=== PATIENT | female | born 1985 | race Caucasian/White ===

== ENCOUNTER 2020-05-31 02:38 | Outpatient (CLI) | payer BC, SELFPAY ==
[2020-05-31 12:22] LABS: Abs Immature Grans 0.03 k/cumm (0.0-0.09); Absolute Basophil Count 0.01 k/cumm (0.0-0.2); Absolute Eosinophil Count 0.07 k/cumm (0.0-0.7); Absolute Lymphocyte Count 2.35 k/cumm (1.2-3.4); Absolute Monocyte Count 0.74 k/cumm (0.11-0.7); Absolute Neutrophil Count 6.31 k/cumm (1.2-6.7); Basophils % 0.1; Eosinophils % 0.7; HCT 39.6 % (36.0-46.0); HGB 13.2 g/dL (12.0-15.5); Immature Grans % 0.3 %; Lymphocytes % 24.7; Mean Corp. HGB Concentration 33.3 g/dL (32.0-36.0); Mean Corpuscular Hemoglobin 29.7 pg (27.0-33.0); Mean Platelet Volume 11.6 fL (8.0-11.0); Monocytes % 7.8; Neutrophils % 66.4; Platelet Count 248 x1000/uL (130-400); RBC 4.45 m/cumm (4.00-5.20); RBC Distribution Width 13.9 % (11.7-14.6); White Blood Cell Count 9.51 k/cumm (4.4-10.8)
[2020-06-01 10:41] LABS: Varicella IgG Antibody Positive (See Note)
[2020-06-01 10:42] LABS: Rubella IgG Ab (UVM) Positive (See Note)
[2020-06-01 11:13] LABS: Hepatitis B Surface Ag Negative (Negative)
[2020-06-01 11:53] LABS: Hepatitis C Ab w Rflx HCV PCR Negative (Negative)
[2020-06-01 12:02] LABS: HIV-1/2 Ag & Ab Screen Negative (Negative)
[2020-06-02 09:59] LABS: Syphilis Total Ab w/Reflex Nonreactive (Nonreactive)
== END 2020-05-31 02:58 ==
PROVIDERS: PCP Emergency Medicine; Visit Provider Advanced Practice Midwife
DX: Z34.91 Encounter for supervision of normal pregnancy, unspecified, first trimester (principal); Z11.4 Encounter for screening for human immunodeficiency virus [HIV]; Z11.59 Encounter for screening for other viral diseases; Z01.84 Encounter for antibody response examination
CPT/HCPCS: 36415; 86787; 86803; 86850; 86900; 86901; 87340; 87389; 85025; 86762; 86780

== ENCOUNTER 2020-05-31 22:55 | Outpatient (REF) | payer BC, SELFPAY ==
[2020-05-31 14:46] LABS: *AMPHETAMINES SCREEN URINE Negative (Negative); *BARBITURATES SCREEN URINE Negative (Negative); *BENZODIAZEPINES SCREEN URINE Negative (Negative); Cannabinoids THC Negative (Negative); Cocaine Screen,Urine Negative (Negative); METHADONE URINE SCREEN Negative (Negative); OPIATES URINE SCREEN Negative (Negative)
[2020-05-31 14:50] LABS: Tricyclic Antidepressants Negative (Negative)
[2020-06-02 14:01] LABS: Chlamydia Result Negative (Negative); GC Result Negative (Negative)
[2020-06-07 16:35] LABS: Buprenorphine Negative; Norbuprenorphine Negative
== END 2020-05-31 23:15 ==
LOC: LBN 22:55
PROVIDERS: PCP Emergency Medicine; Visit Provider Advanced Practice Midwife
DX: Z34.91 Encounter for supervision of normal pregnancy, unspecified, first trimester
CPT/HCPCS: 80307; 87491; 87591; 87086

== ENCOUNTER 2020-07-04 15:06 | Outpatient (REF) | payer BC, SELFPAY | END 2020-07-04 15:26 | LOC: LBN 15:06 | PROVIDERS: PCP Emergency Medicine; Visit Provider Advanced Practice Midwife | DX: O26.899 Other specified pregnancy related conditions, unspecified trimester (principal); R30.0 Dysuria | CPT/HCPCS: 87077; 87086 ==

== ENCOUNTER 2020-07-26 00:28 | Outpatient (CLI) | payer BC, SELFPAY ==
--- NOTE | 2020-07-26 07:15 | DI.US_ITS ---
EXAM: US OB 2-3 TRIMESTER CLINICAL HISTORY: ,Z34.90 TECHNIQUE: Ultrasound performed using standard protocol. COMPARISON: US OB US 2-3 TRIMESTER TRANSABD*P from 08/16/2017 FINDINGS: Ob ultrasound was performed utilizing 2nd trimester protocol. biometry is consistent gestation al age 20 weeks 4 days and EDC of December 09, 2020. Placenta is anterior and there is no evidence of placenta previa. heart rate is 168 BPM. Ther e is visually a normal quantity of amniotic fluid. anomaly screen is within normal limits as per the attached checklist. IMPRESSION: DATA REPOSITORY:
== END 2020-07-26 00:48 ==
PROVIDERS: PCP Emergency Medicine; Visit Provider Advanced Practice Midwife
DX: Z34.92 Encounter for supervision of normal pregnancy, unspecified, second trimester (principal)
CPT/HCPCS: 76805

== ENCOUNTER 2020-09-23 09:26 | Outpatient (CLI) | payer BC, SELFPAY ==
[2020-09-23 09:41] LABS: HCT 36.8 % (36.0-46.0); HGB 11.7 g/dL (11.2-15.7); MCH 29.9 pg (27.0-33.0); MCHC 31.8 % (32.0-36.0); MCV 94.1 fL (80-95); MPV 11.3 fL (8.0-11.0); Platelet Count 185 10^3/uL (130-400); RBC 3.91 10^6/uL (3.93-5.22); RDW 13.3 % (11.7-14.6); WBC 8.76 10^3/uL (4.4-10.8)
[2020-09-23 09:59] LABS: Glucose,1 Hr (Glucola) 117 mg/dL (80-140)
== END 2020-09-23 09:46 ==
PROVIDERS: PCP Emergency Medicine; Visit Provider Advanced Practice Midwife
DX: Z34.93 Encounter for supervision of normal pregnancy, unspecified, third trimester (principal)
CPT/HCPCS: 36415; 82950; 85027

== ENCOUNTER 2025-06-29 11:23 | Outpatient (REF) | payer BC, SELFPAY ==
--- NOTE | 2025-06-29 10:40 | PAPFT_PTH ---
PATIENT: Adan Salas LOC: [facility] U#:[id number] AGE/SX: 39/F ROOM: RE06/29/[address]: Brooke Hernandez NP : 1985 BED: DIS: 06/29/2025 SPEC #: [id number] RECD: 06/29/25 13:09 STATUS: SUSI PEDERSON #: [id number] DILEEP: 06/29/25 10:[address]: Brooke Hernandez NP DEPT: [facility]LY [facility], [facility] Cytology RECD BY: Miesha Coffey ENTERED: 06/29/25 13:09 SP TYPE: PAPFT MARGUERITE DR: Andria Ma, [employer] Tissues: 1 - CX/ENDOCX FOR PAP SMEARS Procedures: PAP THIN PREP/[facility] Screening Comments: [id number]
== END 2025-06-29 11:24 | disposition home or self-care (01) ==
LOC: LBN 11:23
PROVIDERS: PCP Nurse Practitioner Family; Visit Provider Nurse Practitioner Women's Health
DX: Z12.4 Encounter for screening for malignant neoplasm of cervix (principal)
CPT/HCPCS: 88142

== ENCOUNTER 2025-08-13 03:31 | Outpatient (CLI) | payer BC, SELFPAY ==
[2025-08-13 08:38] LABS: Abs Immature Grans 0.02 10^3/uL (0.0-0.06); HCT 41.5 % (36.0-46.0); HGB 13.2 g/dL (11.2-15.7); Immature Grans % 0.3 %; MCH 27.8 pg (27.0-33.0); MCHC 31.8 % (32.0-36.0); MCV 88 fL (80-95); MPV 11.5 fL (8.0-11.0); Platelet Count 207 10^3/uL (130-400); RBC 4.74 10^6/uL (3.93-5.22); RDW 13.0 % (11.7-14.6); RDW-SD 41.4 fL; WBC 5.74 10^3/uL (4.4-10.8)
[2025-08-13 09:40] LABS: Hemoglobin A1C 5.4 % (<5.7)
[2025-08-13 09:47] LABS: ALT 21 U/L (14-59); AST 11 U/L (15-37); Albumin 3.7 g/dL (3.4-5.0); Alkaline Phosphatase 62 U/L (46-116); Anion Gap 7.9 mmol/L (3-11); BUN 14 mg/dL (7-18); Bilirubin, Total 0.6 mg/dL (0.2-1.0); CO2 28.1 mmol/L (21.0-32.0); Calcium 9.0 mg/dL (8.5-10.1); Calculated LDL 123 mg/dL (<100); Chloride 104 mmol/L (98-107); Cholesterol 195 mg/dL (<200); Estimated GFR 73.95 (mL/min/1.73m2); Glucose 110 mg/dL (74-106); HDL Cholesterol 60 mg/dL (>or=50); Potassium 4.1 mmol/L (3.5-5.1); Sodium 140 mmol/L (136-145); TSH (W/Ref FT4) 1.09 uIU/mL (0.36-3.74); Total Protein 7.1 g/dL (6.4-8.2); Triglyceride 63 mg/dL (<150)
[2025-08-16 10:28] LABS: HBs Antibody, Quant 801.4 mIU/mL (See Note); Hepatitis B Surface Ab Positive (See Note)
[2025-08-16 11:08] LABS: Hep B Core Antibody Negative (Negative)
== END 2025-08-13 03:32 | disposition home or self-care (01) ==
LOC: LBO 03:31
PROVIDERS: PCP Nurse Practitioner Family; Visit Provider Nurse Practitioner Family
DX: Z11.59 Encounter for screening for other viral diseases (principal); Z00.00 Encounter for general adult medical examination without abnormal findings
CPT/HCPCS: 36415; 80053; 80061; 86704; 86706; 83036; 84443; 85025